=== PATIENT | female | born 1980 | race African-American/Black ===

== ENCOUNTER 2016-06-27 11:23 | Emergency (ER) | payer BC ==
[~2016-06-27] VITALS: Ht 160 cm; Wt 88.0 kg
[~2016-06-27 11:23] MED LIST: CYCL10TA2 PO
[2016-06-27 11:44] VITALS: BP 139/89
--- NOTE | 2016-06-27 12:24 | RAD ---
Indication pain. No history of trauma. AP oblique and lateral views of the right ankle were obtained. There is moderate diffuse soft tissue swelling. A bony abnormality is not seen.
--- NOTE | 2016-06-27 12:27 | RAD ---
Indication pain. No history of trauma. AP oblique and lateral views of the right foot were obtained. There is some soft tissue swelling. A bony abnormality is not seen.
[2016-06-27] MEDS ORDERED: NAPR500T8 PO (12:46)
[2016-06-27] MEDS ORDERED: METH4TAB2 PO (12:46)
--- NOTE | 2016-06-27 12:46 | PHYS DOC ---
Past Medical History Past Medical History: Hypertension Past Surgical History: , Other Additional Past Surgical Histo: "myomectomy" Alcohol Use: None Drug Use: None Adult General Chief Complaint Chief Complaint: FOOT INJURY PAIN HPI HPI Patient is a 36 year old female who presents with moderate right foot and ankle swelling that began 5 days ago. Patient denies any known injury. Patient states the pain is worse when she is ambulating. Patient states she does a job where she is constantly walking. Review of Systems Review of Systems Constitutional: Denies fever or chills [] Musculoskeletal: Right foot and ankle swelling and pain Integument: Denies rash or skin lesions [] Neurologic: Denies headache, focal weakness or sensory changes [] Endocrine: Denies polyuria or polydipsia [] Allergies Allergies Allergies Coded Allergies Type Severity Reaction Last Updated Verified Sulfa (Sulfonamide Antibiotics) Allergy Intermediate RASH 06/27/16 No tramadol Allergy Intermediate 06/27/16 No Physical Exam Physical Exam Constitutional: Well developed, well nourished, no acute distress, non-toxic appearance. [] Skin: Warm, dry, no erythema, no rash. [] Back: No tenderness, no CVA tenderness. [] Extremities: Right ankle and foot with mild amount of soft tissue swelling diffusely. Diffuse tenderness on palpation of the top of the right foot. Diffuse tenderness on palpation of the right lateral ankle. Full range of motion to the right ankle and foot. +2 right pedal pulse. Cap refill less than 2 seconds the right lower extremity. Sensation intact to the right lower extremity. Neurologic: Alert and oriented X 3, normal motor function, normal sensory function, no focal deficits noted. [] Psychologic: Affect normal, judgement normal, mood normal. [] Current Patient Data Vital Signs Vital Signs Date Time Temp Pulse Resp B/P Pulse Ox O2 Delivery O2 Flow Rate FiO2 06/27/16 11:44 98.3 105 20 98 Room Air 98.3 EKG EKG [] Radiology/Procedures Radiology/Procedures [] Course & Med Decision Making Course & Med Decision Making Pertinent Labs and Imaging studies reviewed. (See chart for details) Patient is in the ED with right foot and ankle pain and swelling with no known injury, right foot and ankle x-rays interpreted by radiologist are negative for any acute findings but noted for soft tissue swelling. Faustino wrap applied to the right ankle and foot by the ED RN. Neurovascular exam done by me is normal. Ice elevation was encouraged. Discharged with Medrol Dosepak and naproxen. Follow-up with orthopedic doctor in one week. Violette Disclaimer Violette Disclaimer This electronic medical record was generated, in whole or in part, using a voice recognition dictation system. Departure Departure Impression: Primary Impression: Right ankle pain Additional Impression: Right foot pain Disposition: HOME, SELF-CARE Condition: STABLE Referrals: JOSE LOPEZ MD (PCP) CARIDAD CLARK MD see him in one week Patient Instructions: Ankle Pain Additional Instructions: You were seen for ankle and foot swelling. Ice and elevate the extremity. Keep the Faustino wrap on as tolerated. Take the prescribed medicines as ordered. Follow- up with the provided orthopedic doctor in 1-2 weeks if pain and swelling continues. Scripts Naproxen 500 Mg Tablet.dr1 Tab PO BID #60 TAB Ref 1 Prov:AKI GARCES LANNY 06/27/16 Methylprednisolone (Medrol)4 Mg Tab.ds.pk1 Pkg PO UD #1 PKG Prov:AKI GARCES LANNY 06/27/16 Problem Qualifiers Primary Impression: Right ankle pain Chronicity: acute Qualified Code: M25.571 - Pain in right ankle and joints of right foot XIMENAAKI SAENZ LANNY Jun 27, 2016 12:46
== END 2016-06-27 12:58 | disposition home or self-care (01) ==
LOC: ER 11:23
DX: M25.571 Pain in right ankle and joints of right foot (principal); R22.41 Localized swelling, mass and lump, right lower limb; I10 Essential (primary) hypertension; Z88.2 Allergy status to sulfonamides; Z88.6 Allergy status to analgesic agent
CPT/HCPCS: 73610; 73630; 99284-25

== ENCOUNTER 2016-12-11 15:56 | Emergency (ER) | payer SELFPAY ==
[~2016-12-11] VITALS: Ht 160 cm; Wt 88.0 kg
[~2016-12-11 15:56] MED LIST changes: +METH4TAB2 PO; +NAPR500T8 PO
[2016-12-11 16:14] VITALS: BP 150/65
[2016-12-11] MEDS ORDERED: predniSONE 20 MG TABLET PO ONE (16:15)
[2016-12-11] MEDS ORDERED: IPRATRPIUM/ALBUTEROL 0.5/2.5MG 3 ML NEBU. NEB ONE (16:15)
--- NOTE | 2016-12-11 16:28 | PHYS DOC ---
Past Medical History Past Medical History: Asthma, Hypertension Past Surgical History: , Other Additional Past Surgical Histo: Myomectomy Alcohol Use: None Drug Use: None Adult General Chief Complaint Chief Complaint: ASTHMA HPI HPI Patient is a 36 year old female with a history of hypertension and asthma who presents today complaining of shortness of breath coughing and sore throat that began 4 days ago. Patient denies any fever. She states she has tried using her inhaler at 1 PM today with minimal relief. Review of Systems Review of Systems Constitutional: Denies fever or chills [] Eyes: Denies change in visual acuity, redness, or eye pain [] HENT: sore throat [] Respiratory: cough and shortness of breath [] Cardiovascular: No additional information not addressed in HPI [] GI: Denies abdominal pain, nausea, vomiting, bloody stools or diarrhea [] : Denies dysuria or hematuria [] Musculoskeletal: Denies back pain or joint pain [] Integument: Denies rash or skin lesions [] Neurologic: Denies headache, focal weakness or sensory changes [] Endocrine: Denies polyuria or polydipsia [] Current Medications Current Medications Current Medications Medications (Trade) Dose Ordered Sig/Froylan Start Time Stop Time Status Last Admin Dose Admin Albuterol/ Ipratropium (Duoneb) 3 ml 1X ONCE 12/11/16 16:15 12/11/16 16:22 DC 12/11/16 16:48 3 ML Prednisone (Prednisone) 60 mg 1X ONCE 12/11/16 16:15 12/11/16 16:22 DC 12/11/16 17:08 60 MG Allergies Allergies Allergies Coded Allergies Type Severity Reaction Last Updated Verified Sulfa (Sulfonamide Antibiotics) Allergy Intermediate RASH 06/27/16 No tramadol Allergy Intermediate 06/27/16 No Physical Exam Physical Exam Constitutional: Well developed, well nourished, no acute distress, non-toxic appearance. [] HENT: Normocephalic, atraumatic, bilateral external ears normal, oropharynx moist, no oral exudates, nose normal. [] Eyes: PERRLA, EOMI, conjunctiva normal, no discharge. [] Neck: Normal range of motion, no tenderness, supple, no stridor. [] Cardiovascular:Heart rate regular rhythm, no murmur [] Lungs & Thorax: Tight chest, diminished breath sounds especially to posterior lung bases. Abdomen: Bowel sounds normal, soft, no tenderness, no masses, no pulsatile masses. [] Skin: Warm, dry, no erythema, no rash. [] Back: No tenderness, no CVA tenderness. [] Extremities: No tenderness, no cyanosis, no clubbing, ROM intact, no edema. [] Neurologic: Alert and oriented X 3, normal motor function, normal sensory function, no focal deficits noted. [] Psychologic: Affect normal, judgement normal, mood normal. [] Current Patient Data Vital Signs Vital Signs Date Time Temp Pulse Resp B/P (MAP) Pulse Ox O2 Delivery O2 Flow Rate FiO2 12/11/16 16:51 Room Air 12/11/16 16:14 98.3 104 20 100 98.3 EKG EKG [] Radiology/Procedures Radiology/Procedures [] Course & Med Decision Making Course & Med Decision Making Pertinent Labs and Imaging studies reviewed. (See chart for details) This is a 36-year-old female patient presenting to the ED today with coughing shortness of breath and a sore throat for 4 days. She has history of asthma. Her chest was very tight on arrival to the ED. She was given prednisone and a DuoNeb treatment. Lungs are cleaned up, negative rapid strep. She'll be discharged with prednisone for 4 more days, albuterol inhaler, Tessalon Perles and instructed to follow-up with the primary care doctor in one week. Instructed to return to the ED if symptoms worsen. Dragon Disclaimer Dragon Disclaimer This electronic medical record was generated, in whole or in part, using a voice recognition dictation system. Departure Departure Impression: Primary Impression: Asthma exacerbation Additional Impression: Acute viral pharyngitis Disposition: 01 HOME, SELF-CARE Condition: STABLE Referrals: JOSE LOPEZ MD (PCP) follow up with your doctor in one week Patient Instructions: Asthma, Adult, Viral Pharyngitis Additional Instructions: You were seen with asthma exacerbation. Use the medications provided as ordered. Return to the emergency room if symptoms worsen otherwise follow-up with your doctor in one week. Scripts Benzonatate (TESSALON PERLE) 100 Mg Capsule 1 CAP PO TID, #30 CAP Prov: AKI GARCES APRN 12/11/16 Albuterol Sulfate (Proair Respiclick) 90 Mcg Aer.pow.ba 1 PUFF IH PRN Q6HRS Y for SHORTNESS OF BREATH, #1 INHALER Prov: AKI GARCES APRN 12/11/16 Prednisone (PREDNISONE) 50 Mg Tablet 1 TAB PO DAILY, #4 TAB Prov: AKI GARCES APRN 12/11/16 Problem Qualifiers AKI GARCES APRN Dec 11, 2016 16:28
[2016-12-11] MEDS ORDERED: BENZ100C PO (17:21)
[2016-12-11] MEDS ORDERED: PROAIR RESPICL90 MCG IH (17:21)
[2016-12-11] MEDS ORDERED: PRED50TA PO (17:21)
[2016-12-12 10:51] LABS: NEGATIVE OBC STREP NEG; POSITIVE OBC STREP POS
== END 2016-12-11 17:27 | disposition home or self-care (01) ==
LOC: ER 15:56
DX: J45.901 Unspecified asthma with (acute) exacerbation (principal); J02.8 Acute pharyngitis due to other specified organisms; B97.89 Other viral agents as the cause of diseases classified elsewhere; I10 Essential (primary) hypertension; Z88.2 Allergy status to sulfonamides; Z88.5 Allergy status to narcotic agent
CPT/HCPCS: 87070; 87880; 94250; 94640; 99284; J7512; J7620

== ENCOUNTER 2016-12-17 13:53 | Emergency (ER) | payer SELFPAY ==
[~2016-12-17] VITALS: Ht 157.5 cm; Wt 86.2 kg
[~2016-12-17 13:53] MED LIST changes: +BENZ100C PO; +PRED50TA PO; +PROAIR RESPICL90 MCG IH
[2016-12-17 14:45] VITALS: BP 154/70
[2016-12-17] MEDS ORDERED: IPRATRPIUM/ALBUTEROL 0.5/2.5MG 3 ML NEBU. NEB ONE (15:15)
--- NOTE | 2016-12-17 15:24 | PHYS DOC ---
Past Medical History Past Medical History: Asthma, Hypertension Past Surgical History: , Other Additional Past Surgical Histo: Myomectomy Alcohol Use: None Drug Use: None Adult General Chief Complaint Chief Complaint: COUGH HPI HPI Patient is a 36 year old female presents to the emergency department that seven -day history of cough. Patient was evaluated one week ago in the emergency department and prescribed prednisone and albuterol for asthma exacerbation. Patient states she felt better while taking the prednisone. She finished her last dose of prednisone 3 days ago and began having increasing cough and shortness of breath yesterday. Patient reports no fever. Review of Systems Review of Systems Constitutional: Denies fever or chills [] Eyes: Denies change in visual acuity, redness, or eye pain [] HENT: Denies nasal congestion or sore throat [] Respiratory: Cough without wheezing or shortness of breath Cardiovascular: No chest pain or palpitations GI: Denies abdominal pain, nausea, vomiting, bloody stools or diarrhea [] : Denies dysuria or hematuria [] Musculoskeletal: Denies back pain or joint pain [] Integument: Denies rash or skin lesions [] Neurologic: Denies headache, focal weakness or sensory changes [] Endocrine: Denies polyuria or polydipsia [] Current Medications Current Medications Current Medications Medications (Trade) Dose Ordered Sig/Froylan Start Time Stop Time Status Last Admin Dose Admin Albuterol/ Ipratropium (Duoneb) 3 ml 1X ONCE 12/17/16 15:15 12/17/16 15:16 DC 12/17/16 15:21 3 ML Allergies Allergies Allergies Coded Allergies Type Severity Reaction Last Updated Verified Sulfa (Sulfonamide Antibiotics) Allergy Intermediate RASH 06/27/16 No tramadol Allergy Intermediate 06/27/16 No Physical Exam Physical Exam Constitutional: Well developed, well nourished, no acute distress, non-toxic appearance. [] HENT: Normocephalic, atraumatic, bilateral external ears normal, oropharynx moist, no oral exudates, nose normal. [] Eyes: PERRLA, EOMI, conjunctiva normal, no discharge. [] Neck: Normal range of motion, no tenderness, supple, no stridor. [] Cardiovascular:Heart rate regular rhythm, no murmur [] Lungs & Thorax: Bilateral breath sounds diminished throughout without wheezing. Symmetrical chest wall movement with inspection expiration. Skin: Warm, dry, no erythema, no rash. [] Back: No tenderness, no CVA tenderness. [] Neurologic: Alert and oriented X 3, normal motor function, normal sensory function, no focal deficits noted. [] Current Patient Data Vital Signs Vital Signs Date Time Temp Pulse Resp B/P (MAP) Pulse Ox O2 Delivery O2 Flow Rate FiO2 12/17/16 15:22 97 Room Air 12/17/16 14:45 98.8 120 20 154/70 (98) 98.8 EKG EKG [] Radiology/Procedures Radiology/Procedures Chest x-ray: No acute changes[] Course & Med Decision Making Course & Med Decision Making Pertinent Labs and Imaging studies reviewed. (See chart for details Well's score 0. This post patient is a low risk category. There is no historical , physical exam that would indicate a need to consider further evaluate the patient for pulmonary embolus but this time. I'm no longer considering pulmonary embolism in the differential diagnosis. I've applied properly developed and validated evidence-based risk stratification protocol to this patient's presentation. I have identified the patient has low risk for PE BMI just BASED on the patient's history and physical exam and her application of the Wells PE rule. Having determined that the patient is a low risk for PE based on the above, identified perked score cool. The 8 her criteria are negative: H less than 50, pulse is 100, saturation greater than 94%, no unilateral leg swelling, no hemoptysis, no recent trauma or surgery, no prior PE or DVT and no hormone use. Based on this process the patient is very low risk for PE less than 2% chance of having a pulmonary embolism. [ I spoke with the patient and/or care givers. I've explained the patient's condition, diagnosis and treatment plan based on the information available to me at this time. I've answered the patient's and/or care givers questions and a dressing concerns. The patient and/or care givers have as good an understanding of the patient's diagnosis, condition and treatment plan as can be expected at this time. Vital signs stable. The patient's condition is stable and appropriate for discharge from the emergency department. The patient will pursue further outpatient evaluation with the primary care physician or other designated or consulting physician as outlined in the discharge instructions. The patient and/or care givers are agreeable to this plan of care and follow-up instructions and explained in detail. The patient and /or care givers have received these instructions in written format and have expressed an understanding of the discharge instructions. The patient and/or caregivers are aware that any significant change in condition or worsening of symptoms should prompt immediate return to this closest emergency department or call to 911. Violette Disclaimer Dragon Disclaimer This electronic medical record was generated, in whole or in part, using a voice recognition dictation system. Departure Departure Impression: Primary Impression: Asthma exacerbation Additional Impression: Upper respiratory infection Disposition: HOME, SELF-CARE Condition: STABLE Referrals: JOSE LOPEZ MD (PCP) Patient Instructions: Asthma, Adult Scripts Azithromycin (ZITHROMAX) 250 Mg Tablet 1 PKG PO DAILY, #6 TAB Prov: PATSY BANKS APRN 12/17/16 Methylprednisolone (MEDROL) 4 Mg Tab.ds.pk 1 PKG PO DAILY, #1 PKG Prov: PATSY BANKS APRN 12/17/16 Fluticasone Propionate (FLOVENT 110MCG HFA) 12 Gm Aer.w.adap 2 PUFF IH BID, #1 INHALER 2 Refills Prov: PATSY BANKS APRN 12/17/16 Ipratropium/Albuterol Sulfate (DUONEB 0.5-3(2.5) MG/3 ML) 3 Ml Ampul.neb 3 ML NEB QID, #60 EACH Prov: PATSY BANKS APRN 12/17/16 Problem Qualifiers PATSY BANKS APRN Dec 17, 2016 15:24
[2016-12-17] MEDS ORDERED: AZIT250T PO (16:09)
[2016-12-17] MEDS ORDERED: FLUT12AE IH (16:09)
[2016-12-17] MEDS ORDERED: METH4TAB2 PO (16:09)
[2016-12-17] MEDS ORDERED: IPRA3AMP NEB (16:09)
--- NOTE | 2016-12-18 08:00 | RAD ---
Chest, 2 views, 12/17/2016: History: Cough Comparison is made to a study from 12/12/2013. The heart is at the upper limits of normal in size. The pulmonary vascularity is normal. No pulmonary infiltrates are seen. There is no evidence of pleural fluid. IMPRESSION: No acute cardiopulmonary abnormality is detected.
== END 2016-12-17 16:17 | disposition home or self-care (01) ==
LOC: ER 13:53
DX: J45.901 Unspecified asthma with (acute) exacerbation (principal); J06.9 Acute upper respiratory infection, unspecified; I10 Essential (primary) hypertension; Z88.2 Allergy status to sulfonamides; Z88.5 Allergy status to narcotic agent
CPT/HCPCS: 71020; 94640; 99284; J7620

== ENCOUNTER 2017-04-25 08:07 | Emergency (ER) | payer OTHER ==
[2017-04-25 08:44] LABS: NEGATIVE OBC STREP NEG; POSITIVE OBC STREP POS
[2017-04-25] MEDS: IBUPROFEN 800 MG TABLET. PO (09:02)
[2017-04-25 09:12] LABS: INFLUENZA A PATIENT NEGATIVE (NEGATIVE); INFLUENZA B PATIENT NEGATIVE (NEGATIVE); OBC FLU VALID
== END 2017-04-25 09:28 | disposition home or self-care (01) ==
LOC: ER 08:07
DX: J01.10 Acute frontal sinusitis, unspecified (principal); J01.00 Acute maxillary sinusitis, unspecified; R19.7 Diarrhea, unspecified; J45.909 Unspecified asthma, uncomplicated; I10 Essential (primary) hypertension; Z88.2 Allergy status to sulfonamides; Z88.5 Allergy status to narcotic agent
CPT/HCPCS: 87070; 87804; 87804-59; 87880; 99284

== ENCOUNTER 2020-08-25 17:28 | Emergency (ER) | payer BC ==
[~2020-08-25] VITALS: Ht 160 cm; Wt 86.3 kg
[~2020-08-25 17:28] MED LIST changes: +AMOX1TAB61 PO; +AZIT250T PO; +DICY10CA3 PO; +FLUT12AE IH; +HYDR12.58 PO; +IPRA3AMP29 NEB; +LISI-130 PO; +OMEP20TA8 PO
--- NOTE | 2020-08-25 17:59 | PHYS DOC ---
Past Medical History Past Medical History: Anemia, Asthma, Hypertension Past Surgical History: , Other Additional Past Surgical Histo: Myomectomy, SINUS SURGERY Smoking Status: Never Smoker Alcohol Use: None Drug Use: None General Adult EDM: Chief Complaint: ABNORMAL LABS HPI: HPI: Patient is a 40-year-old female presenting by recommendation of her GI physician for electrolyte evaluation. Patient has known history of anemia, was seen by her GI physician yesterday and is scheduled for outpatient iron infusion tomorrow. Nonetheless, labs drawn yesterday were concerning for low magnesium of unknown value and low potassium of 3.1. It was advised she come to our ER for recheck and replacement as needed because patient is pending colonoscopy this upcoming Monday and GI physician is concerned of worsened electrolyte abnormalities. Patient is otherwise healthy, is taking Protonix, lisinopril and hydrochlorothiazide for blood pressure issues. She has history of colon polyp and was recently admitted for abdominal pain prompting outpatient colonoscopy scheduled this upcoming Monday. On arrival, she has no complaints. No fever, sick contacts, lightheadedness, chest pain, shortness of breath, abdominal pain or dysuria Review of Systems: Review of Systems: Fourteen body systems of review of systems have been reviewed. See HPI for pertinent positives and negative responses, other [place]dwell all other systems are negative, non-pertinent or non-contributory Heart Score: C/O Chest Pain: No HEART Score for Chest Pain: HEART Score for Chest Pain Response (Comments) Value History Slighlty/Non-Suspicious 0 ECG Normal 0 Age < 45 0 Risk Factors 1 or 2 Risk Factors 1 Total 1 Risk Factors: Risk Factors: DM, Current or recent (<one month) smoker, HTN, HLP, family history of CAD, obesity. Risk Scores: Score 0 - 3: 2.5% MACE over next 6 weeks - Discharge Home Score 4 - 6: 20.3% MACE over next 6 weeks - Admit for Clinical Observation Score 7 - 10: 72.7% MACE over next 6 weeks - Early Invasive Strategies Allergies: Allergies: Allergies Coded Allergies Type Severity Reaction Last Updated Verified Sulfa (Sulfonamide Antibiotics) Allergy Intermediate RASH 06/27/16 No tramadol Allergy Intermediate 06/27/16 No Physical Exam: PE: Constitutional: Well developed, well nourished, no acute distress, non-toxic appearance. HENT: Normocephalic, atraumatic, bilateral external ears normal, oropharynx moist, no oral exudates, nose normal. Eyes: PERRLA, EOMI, conjunctiva normal, no discharge. Neck: Normal range of motion, no tenderness, supple, no stridor. Cardiovascular: Heart rate regular, sinus rhythm, no murmurs rubs or gallops Lungs & Thorax: Bilateral breath sounds clear to auscultation Abdomen: Bowel sounds normal, soft, no tenderness, no masses, no pulsatile masses. Nonsurgical abdomen, no peritoneal signs Skin: Warm, dry, no erythema, no rash. Back: No tenderness, no CVA tenderness. Extremities: No tenderness, no cyanosis, no clubbing, ROM intact, no edema. Neurologic: Alert and oriented X 3, grossly normal motor & sensory function, no focal deficits noted. Psychologic: Affect normal, judgement normal, mood normal. Current Patient Data: Labs: Laboratory Tests Test 08/25/20 18:50 Sodium Level 141 mmol/L Potassium Level 3.1 mmol/L Chloride Level 103 mmol/L Carbon Dioxide Level 31 mmol/L Anion Gap 7 Blood Urea Nitrogen 9 mg/dL Creatinine 0.6 mg/dL Estimated GFR (Cockcroft-Gault) 135.4 BUN/Creatinine Ratio 15 Glucose Level 88 mg/dL Calcium Level 9.4 mg/dL Magnesium Level 1.6 mg/dL Total Bilirubin 0.4 mg/dL Aspartate Amino Transf (AST/SGOT) 23 U/L Alanine Aminotransferase (ALT/SGPT) 27 U/L Alkaline Phosphatase 62 U/L Total Protein 7.5 g/dL Albumin 3.3 g/dL Albumin/Globulin Ratio 0.8 Vital Signs: Vital Signs Date Time Temp Pulse Resp B/P (MAP) Pulse Ox O2 Delivery O2 Flow Rate FiO2 08/25/20 18:10 98.5 95 17 156/72 (100) 99 Room Air 98.5 Vital Signs Date Time Temp Pulse Resp B/P (MAP) Pulse Ox O2 Delivery O2 Flow Rate FiO2 08/25/20 18:10 98.5 95 17 156/72 (100) 99 Room Air 98.5 EKG: EKG: EKG ordered and interpreted by myself at 1820 hrs. as sinus rhythm at 94 bpm, unremarkable intervals, no axis deviation, no acute ischemic findings, no STEMI Radiology/Procedures: Radiology/Procedures: [] Course & Med Decision Making: Course & Med Decision Making Mildly hypertensive otherwise hemodynamically stable. HPI and physical exam nonconcerning for emergent or surgical process. ER work-up consistent with hypomagnesemia and hypokalemia which is a known issue for patient pending colonoscopy Joint decision made to treat magnesium aggressively with IV replacement. 40 mEq potassium administered while in ER with instructions to take an additional 40 mEq of potassium prior to bed and name of increasing potassium to a level ~4.0 She sees her GI physician tomorrow for an iron infusion, states she can start taking potassium supplementation tomorrow a total of 20 mEq daily and have her magnesium and potassium rechecked at that time for further guidance on replacement prior to colonoscopy prep on Strict return precautions were discussed with good understanding by patient, all questions and concerns addressed prior to ER departure Violette Disclaimer: Violette Disclaimer: This electronic medical record was generated, in whole or in part, using a voice recognition dictation system. Departure Departure Impression: Primary Impression: Hypomagnesemia Additional Impression: Hypokalemia Disposition: HOME / SELF CARE / HOMELESS Condition: IMPROVED Referrals: KAILASH PRUETT MD (PCP) Additional Instructions: As discussed prior to ER departure, your magnesium level was 1.6 and potassium level was 3.1. You were given IV replacement of magnesium and 40 mEq of potassium while in ER which should increase your potassium level to 3.5. You were given an additional 40 mEq of potassium to take later this evening to avoid stomach upset. You have also been given a new prescription for potassium supplementation, you should take 20 mEq daily and should start this tomorrow morning. As discussed, it is recommended that your GI physician check your potassium and magnesium levels tomorrow after your iron transfusion to evaluate your levels and discuss need for altering current electrolyte replenishment regiment. If any concerning signs or symptoms present prior to outpatient follow-up tomorrow please do not hesitate to come back for repeat evaluation. It was a pleasure to take care of you and I wish you the best going forward Scripts Potassium Chloride (Klor-Con 10) 10 Meq Tablet.er 2 TAB PO DAILY for 5 Days, #10 TAB 0 Refills Prov: JAVIER ORTEGA DO 08/25/20 JAVIER ORTEGA DO August 25, 2020 17:59
[2020-08-25 19:07] LABS: CALCIUM 9.4 mg/dL (8.5-10.1); CREATININE 0.6 mg/dL (0.6-1.0); GFR 135.4; POTASSIUM 3.1 mmol/L (3.5-5.1)
[2020-08-25 19:13] LABS: ALBUMIN 3.3 g/dL (3.4-5.0); ALBUMIN/GLOBULIN RATIO 0.8 (1.0-1.7); MAGNESIUM 1.6 mg/dL (1.8-2.4); TOTAL BILIRUBIN 0.4 mg/dL (0.2-1.0); TOTAL PROTEIN 7.5 g/dL (6.4-8.2)
[2020-08-25] MEDS ORDERED: MAGNESIUM SULFATE 2GM 50 ML IV ONE (19:30)
[2020-08-25] MEDS ORDERED: POTA10TA6 PO (19:43)
[2020-08-25] MEDS ORDERED: POTASSIUM CHLORIDE 20 MEQ TABLET.ER. PO ONE ×2 (19:45→21:05)
[2020-08-25 21:15] VITALS: BP 162/85
--- NOTE | 2020-08-26 07:36 | EKG ---
[facility] [address] [place] [id number] Test Date: 2020-08-25 Test Time: 18:10:51 Pat Name: INDIRA DAVIS Department: Room: Gender: F [employer]: : 1980 Requested By: JAVIER ORTEGA Order Number: [id number] Reading MD: Measurements Intervals [place] Rate: 94 P: 66 NE: 152 QRS: 28 QRSD: 80 T: 28 QT: 360 QTc: 456 Interpretive Statements SINUS RHYTHM NO SPECIFIC ECG ABNORMALITIES RI6.01 No previous ECG available for comparison
== END 2020-08-25 21:45 | disposition home or self-care (01) ==
LOC: ER 17:28
DX: E83.42 Hypomagnesemia (principal); E87.6 Hypokalemia; J45.909 Unspecified asthma, uncomplicated; I10 Essential (primary) hypertension; Z86.2 Personal history of diseases of the blood and blood-forming organs and certain disorders involving the immune mechanism; Z98.890 Other specified postprocedural states; Z88.2 Allergy status to sulfonamides; Z88.6 Allergy status to analgesic agent
CPT/HCPCS: 36415; 80053; 83735; 93005; 96365; 99285; J3475